=== PATIENT | male | born 1970 | race Caucasian/White ===

== ENCOUNTER 2016-05-10 13:07 | Emergency (ER) | payer OTHER ==
[~2016-05-10] VITALS: Ht 175.3 cm; Wt 128.3 kg
[~2016-05-10 13:07] MED LIST: ANTIDEPRESSANT; CIPRO500 MG PO; COUMADIN PO; COUMADIN5 MG PO; FLOMAX0.4 MG PO; KEFLEX500 MG PO; NOHOMEMEDS; NORCO 5/3251 TABLET PO; PERCOCET 5/31 TABLET PO; ZOFRAN ODT4 MG PO; [UNRECOGNIZED DRUG - OTHER]
[2016-05-10 14:57] LABS: HEMATOCRIT 40.9 % (38.0-50.0); MCH 27.5 PG (29.0-34.0); MCHC 34.2 G/DL (30.0-36.0); MCV 80.2 FL (86-99); MEAN PLAT.VOLUME 10.6 uM^3 (9.0-12.4); PLATELET COUNT 178 K/uL (156-360); RBC DIS.WIDTH-CV 13.5 % (11.8-14.6); RBC DIS.WIDTH-SD 38.6 % (39-53); WHITE BLOOD COUNT 7.8 K/uL (4.1-10.2)
[2016-05-10] MEDS ORDERED: ELAVIL25 MG PO (15:08)
[2016-05-10] MEDS ORDERED: VENCLEXTA100 MG PO (15:09)
[2016-05-10] MEDS ORDERED: LYRICA50 MG PO (15:09)
[2016-05-10 15:11] LABS: PTT 74.2 (25-32)
[2016-05-10 15:12] LABS: CHLORIDE 110 mEq/L (99-109); POTASSIUM 4.2 mEq/L (3.7-5.4); SODIUM 140 mEq/L (136-147)
[2016-05-10 15:14] LABS: GLUCOSE 127 mg/dL (70-99)
[2016-05-10 15:15] LABS: ANION GAP 9 MEQ/L (2-14)
[2016-05-10 15:18] LABS: GFR ESTIMATE (CALCULATED) > 59 mL/min/; PROTHROMBIN TIME 136.1 (9.2-11.2)
[2016-05-10 15:19] LABS: UREA NITROGEN (BUN) 16 mg/dL (9-23)
[2016-05-10 15:25] LABS: TROP-I INTERPRETATION NEGATIVE; TROPONIN-I < 0.01 ng/mL (0.0-0.30)
[2016-05-10 15:35] LABS: INTER. NORMALIZED RATIO 12.4
[2016-05-10 19:14] VITALS: BP 111/57
== END 2016-05-10 19:29 | disposition home or self-care (01) ==
LOC: EME 13:07
PROVIDERS: Emergency Medicine
DX: R79.1 Abnormal coagulation profile (principal); R00.0 Tachycardia, unspecified; Z86.718 Personal history of other venous thrombosis and embolism; Z95.828 Presence of other vascular implants and grafts; Z79.01 Long term (current) use of anticoagulants
CPT/HCPCS: 71020; 71275; 80048; 84484; 85027; 85610; 85730; 93005; 99281; 99285; J3430; J7030; J7050

== ENCOUNTER 2016-06-15 23:08 | Emergency (ER) | payer OTHER ==
[~2016-06-15] VITALS: Ht 175.3 cm; Wt 125.6 kg
[~2016-06-15 23:08] MED LIST changes: +ELAVIL25 MG PO; +LYRICA50 MG PO; +VENCLEXTA100 MG PO
[2016-06-15 23:33] LABS: HEMATOCRIT 42.2 % (38.0-50.0); MCH 26.6 PG (29.0-34.0); MCHC 33.2 G/DL (30.0-36.0); MCV 80.1 FL (86-99); MEAN PLAT.VOLUME 10.9 uM^3 (9.0-12.4); PLATELET COUNT 173 K/uL (156-360); RBC DIS.WIDTH-CV 13.9 % (11.8-14.6); RBC DIS.WIDTH-SD 39.9 % (39-53); RED BLOOD COUNT 5.27 M/uL (4.00-5.50); WHITE BLOOD COUNT 5.6 K/uL (4.1-10.2)
[2016-06-15 23:42] LABS: CHLORIDE 109 mEq/L (99-109); SODIUM 142 mEq/L (136-147)
[2016-06-15 23:43] LABS: GLUCOSE 112 mg/dL (70-99)
[2016-06-15 23:45] LABS: ANION GAP 8 MEQ/L (2-14)
[2016-06-15 23:47] LABS: GFR ESTIMATE (CALCULATED) > 59 mL/min/; PTT 36.5 (25-32)
[2016-06-15 23:48] LABS: UREA NITROGEN (BUN) 19 mg/dL (9-23)
[2016-06-16 00:11] LABS: INTER. NORMALIZED RATIO 1.9
[2016-06-16 01:03] VITALS: BP 133/71
== END 2016-06-16 01:05 | disposition home or self-care (01) ==
LOC: EME 23:08
DX: M25.50 Pain in unspecified joint (principal); E05.90 Thyrotoxicosis, unspecified without thyrotoxic crisis or storm; Z86.718 Personal history of other venous thrombosis and embolism; R42 Dizziness and giddiness; Z87.442 Personal history of urinary calculi; Z79.01 Long term (current) use of anticoagulants
CPT/HCPCS: 80048; 84439; 84443; 85027; 85610; 85730; 93005; 99281; 99284

== ENCOUNTER 2016-12-16 15:23 | Emergency (ER) | payer OTHER ==
[~2016-12-16] VITALS: Ht 175.3 cm; Wt 115.6 kg
[2016-12-16 15:42] VITALS: BP 128/61
[2016-12-16 15:58] LABS: HEMATOCRIT 44.7 % (38.0-50.0); MCH 27.5 PG (29.0-34.0); MCHC 32.7 G/DL (30.0-36.0); MCV 84.2 FL (86-99); MEAN PLAT.VOLUME 10.7 uM^3 (9.0-12.4); PLATELET COUNT 168 K/uL (156-360); RBC DIS.WIDTH-CV 14.4 % (11.8-14.6); RBC DIS.WIDTH-SD 44.3 % (39-53); RED BLOOD COUNT 5.31 M/uL (4.00-5.50)
[2016-12-16 16:05] LABS: CHLORIDE 105 mEq/L (99-109); POTASSIUM 4.1 mEq/L (3.7-5.4); SODIUM 138 mEq/L (136-147)
[2016-12-16 16:07] LABS: GLUCOSE 93 mg/dL (70-99)
[2016-12-16 16:08] LABS: ANION GAP 12 MEQ/L (2-14)
[2016-12-16 16:11] LABS: GFR ESTIMATE (CALCULATED) 54 mL/min/
[2016-12-16 16:12] LABS: UREA NITROGEN (BUN) 25 mg/dL (9-23)
[2016-12-16 17:58] LABS: ADD MIUA? YES; BILIRUBIN NEGATIVE; BLOOD SMALL; COLOR YELLOW ((YELLOW)); GLUCOSE (STRIP) NEGATIVE; KETONES 80; LEUKOCYTES NEGATIVE; NITRITE NEGATIVE; PROTEIN (STRIP) NEGATIVE; SPECIFIC GRAVITY 1.021 (1.000-1.030); UROBILINOGEN 0.2 MG/DL (0.2-1.0)
[2016-12-16 18:03] LABS: BACTERIA NONE SEEN /HPF; EPITHELIAL CELLS RARE /HPF; MUCUS TRACE /LPF; UCUL ADDED? NO; WHITE BLOOD CELLS 0-5 /HPF (0-5)
[2016-12-16] MEDS ORDERED: ZOFRAN ODT4 MG PO (18:24)
[2016-12-16] MEDS ORDERED: ULTRAM50 MG PO (18:24)
== END 2016-12-16 19:09 | disposition home or self-care (01) ==
LOC: EME 15:23
DX: N20.0 Calculus of kidney (principal); S39.011A Strain of muscle, fascia and tendon of abdomen, initial encounter; X50.0XXA Overexertion from strenuous movement or load, initial encounter; R11.0 Nausea; Z87.442 Personal history of urinary calculi
CPT/HCPCS: 74177; 80048; 81003; 85027; 99281; 99284; J2405; J7030